=== PATIENT | male | born 1945 | race Caucasian/White ===

== ENCOUNTER 2017-07-12 15:14 | Emergency (ER) | payer MEDICARE, OTHER ==
[2017-07-12 15:14] VITALS: O2SAT 94
[2017-07-12 15:34] LABS: BASOPHILS % (AUTO) 1 % (0-3); EOSINOPHILS % (AUTO) 1 % (0-9); HEMATOCRIT 39 % (39-53); MEAN CORPUSCULAR HGB CONC 34.5 gm/dl (32.0-36.0); MEAN CORPUSCULAR VOLUME 85 fL (80-100); MONOCYTES % (AUTO) 12.7 % (0-12); NEUTROPHILS % (AUTO) 71.3 % (37-80)
[2017-07-12 15:47] LABS: CALCIUM 8.9 mg/dl (8.5-10.1); GLOM FILT RATE 60 mL/min (>60); POTASSIUM 4.5 mMol/L (3.5-5.1); SODIUM 138 mMol/L (136-145)
[2017-07-12 16:24] VITALS: BP 187/90; PULSE 65; RESP 18; TEMP 97.3
== END 2017-07-12 17:06 | DRG 605 ==
LOC: ED 15:14
DX: S50.11XA Contusion of right forearm, initial encounter (principal); R42 Dizziness and giddiness; S60.211A Contusion of right wrist, initial encounter; W19.XXXA Unspecified fall, initial encounter
CPT/HCPCS: 36415; 70450; 73090; 80048; 84484; 85025; 93005; 99282

== ENCOUNTER 2017-07-31 11:25 | Outpatient (CLI) | payer MEDICARE, OTHER | END 2017-07-31 11:26 | disposition home or self-care (01) | DRG 561 | LOC: CONVCARE 11:25 | PROVIDERS: ATTEND Orthopaedic Surgery | DX: S42.211D Unspecified displaced fracture of surgical neck of right humerus, subsequent encounter for fracture with routine healing (principal) | CPT/HCPCS: 73030 ==

== ENCOUNTER 2017-08-21 09:22 | Outpatient (CLI) | payer MEDICARE, OTHER | END 2017-08-21 09:23 | disposition home or self-care (01) | DRG 561 | LOC: CONVCARE 09:22 | PROVIDERS: ATTEND Orthopaedic Surgery | DX: S42.201D Unspecified fracture of upper end of right humerus, subsequent encounter for fracture with routine healing (principal); S42.131D Displaced fracture of coracoid process, right shoulder, subsequent encounter for fracture with routine healing | CPT/HCPCS: 73030 ==

== ENCOUNTER 2017-09-18 10:40 | Outpatient (CLI) | payer MEDICARE, OTHER | END 2017-09-18 10:41 | disposition home or self-care (01) | DRG 561 | LOC: RAD 10:40 | PROVIDERS: ATTEND Orthopaedic Surgery | DX: S42.201D Unspecified fracture of upper end of right humerus, subsequent encounter for fracture with routine healing (principal); M19.90 Unspecified osteoarthritis, unspecified site; M85.821 Other specified disorders of bone density and structure, right upper arm | CPT/HCPCS: 73030 ==

== ENCOUNTER 2017-10-23 13:36 | Outpatient (CLI) | payer MEDICARE, OTHER | END 2017-10-23 13:37 | disposition home or self-care (01) | DRG 561 | LOC: CONVCARE 13:36 | PROVIDERS: ATTEND Orthopaedic Surgery | DX: S42.221D 2-part displaced fracture of surgical neck of right humerus, subsequent encounter for fracture with routine healing (principal) | CPT/HCPCS: 73030 ==

== ENCOUNTER 2018-04-08 18:07 | Inpatient (IN) | payer MEDICARE, OTHER ==
[2018-04-08 18:24] LABS: BASOPHILS % (AUTO) 1 % (0-3); EOSINOPHILS % (AUTO) 1 % (0-9); HEMATOCRIT 41 % (39-53); HEMOGLOBIN 13.5 gm/dl (13.5-17.7); LYMPHOCYTES % (AUTO) 13.7 % (10-50); MEAN CORPUSCULAR HEMOGLOBIN 28.2 pg (27.0-32.0); MEAN CORPUSCULAR HGB CONC 32.5 gm/dl (32.0-36.0); MEAN CORPUSCULAR VOLUME 87 fL (80-100); MONOCYTES % (AUTO) 19.8 % (0-12); NEUTROPHILS % (AUTO) 64.7 % (37-80)
[2018-04-08 18:42] LABS: ABG PH 7.42 (7.35-7.45)
[2018-04-08 18:47] LABS: ALBUMIN 3.3 gm/dl (3.4-5.0); ALKALINE PHOSPHATASE 70 IU/L (46-116); ALT 17 IU/L (14-63); AST 16 IU/L (15-37); BILIRUBIN,TOTAL 0.6 mg/dl (0.2-1.0); BLOOD UREA NITROGEN 23 mg/dl (7-18); CALCIUM 8.4 mg/dl (8.5-10.1); CARBON DIOXIDE 31.9 mEq/L (21-32); CHLORIDE 101 mMol/L (98-107); CREATININE 1.28 mg/dl (0.80-1.30); CRP INFLAMMATORY 7.18 mg/dl (0.00-0.33); GLUCOSE 93 mg/dl (74-106); POTASSIUM 4.6 mMol/L (3.5-5.1); SODIUM 140 mMol/L (136-145); TOTAL PROTEIN 7.1 gm/dl (6.4-8.2); TROP I < 0.017 ng/ml (0.000-0.056)
[2018-04-08] MEDS ORDERED: CEFTRIAXONE 1 GM PDS 1 GM in SODIUM CHLORIDE 0.9% 50 ML 50 ML IV ONE (18:48)
[2018-04-08] MEDS ORDERED: AZITHROMYCIN 500 MG PDS 500 MG in SODIUM CHLORIDE 0.9% 250 ML 250 ML IV ONE (18:48)
[2018-04-08] MEDS ORDERED: SOLUMEDROL 125 MG/2 ML 125 MG/2 ML PDS IV ONE (18:49)
[2018-04-08] MEDS ORDERED: ALBUTEROL NEB SOL 2.5MG/3ML 1 VIAL SOL NEB ONE (18:49)
[2018-04-08] MEDS ORDERED: SOLUMEDROL 125 MG/2 ML 125 MG/2 ML PDS ONE (18:55)
[2018-04-08] MEDS ORDERED: CEFTRIAXONE 1 GM PDS ONE (18:55)
[2018-04-08] MEDS ORDERED: ALBUTEROL NEB SOL 2.5MG/3ML 1 VIAL SOL ONE (18:55)
[2018-04-08] MEDS: SODIUM CHLORIDE 0.9% FLUSH 10 ML SOL IV PRN ×2 (19:06→19:55)
[2018-04-08 19:20] LABS: INR 1.07 (0.86-1.12)
[2018-04-08] MEDS ORDERED: FUROSEMIDE 40 MG SOL IV ONE (19:29)
[2018-04-08] MEDS ORDERED: FUROSEMIDE 40 MG SOL ONE (19:30)
[2018-04-08 20:09] LABS: APPEARANCE,URINE Cloudy; BILIRUBIN,URINE NEGATIVE (NEGATIVE); COLOR,URINE Yellow; GLUCOSE, URINE (UA) NEGATIVE (NEGATIVE); KETONES,URINE TRACE (NEGATIVE); LEUKOCYTE ESTERASE ,URINE 3+ (NEGATIVE); NITRATE,URINE POSITIVE (NEGATIVE); OCCULT BLOOD,URINE 1+ (NEG-TRACE); PH,URINE 8.5
[2018-04-08] MEDS ORDERED: AZITHROMYCIN 500 MG PDS IV ONE (20:09)
[2018-04-08 20:23] LABS: CRYSTALS UNABLE (0-3 AVE/HPF); EPITHELIAL CELLS UNABLE TO ENUMERATE (SQUAMOUS); RBC,URINE UNABLE TO ENUMERATE (0-3AV/HPF); WBC,URINE PACKED (0-5AV/HPF)
[2018-04-08] MEDS ORDERED: AMLODIPINE 5 MG TAB ONE (20:23)
[2018-04-08 20:24] LABS: BACTERIA PACKED (< 1+)
[2018-04-08] MEDS: AMLODIPINE 5 MG TAB PO SCH (20:29)
[2018-04-08] MEDS ORDERED: ALBUTEROL/IPRATROPIUM 1 VIAL SOL INH ONE (20:45)
[2018-04-08] MEDS ORDERED: ALBUTEROL/IPRATROPIUM 1 VIAL SOL ONE (20:47)
[2018-04-08] MEDS ORDERED: BUDESONIDE 0.25 MG/2 ML SUS INH ONE (20:48)
[2018-04-08] MEDS ORDERED: BUDESONIDE 0.5 MG/2 ML AMPUL.NEB ONE (21:05)
[2018-04-08] MEDS ORDERED: HYDRALAZINE HYDROCHLORIDE 10 MG TAB PO ONE (21:58)
[2018-04-08] MEDS ORDERED: HYDRALAZINE HYDROCHLORIDE 10 MG TAB ONE (22:00)
[2018-04-08] MEDS: AMLODIPINE 5 MG TAB PO ONE ×2 (23:23)
[2018-04-09] MEDS: AMLODIPINE 5 MG TAB PO SCH ×2 (00:07→21:25)
[2018-04-09] MEDS ORDERED: DM/GUAIFENESIN SYRUP 10 ML SYRP PO PRN (00:44)
[2018-04-09] MEDS: ALBUTEROL NEB SOL 2.5MG/3ML 1 VIAL SOL NEB PRN ×2 (05:20→16:21)
[2018-04-09] MEDS ORDERED: OMEPRAZOLE 20 MG CAPSULE PO SCH (07:00)
[2018-04-09] MEDS ORDERED: MAGNESIUM HYDROXIDE 30 ML SUS PO PRN (08:40)
[2018-04-09] MEDS ORDERED: DULOXETINE HYDROCHLORIDE 60 MG ECC PO SCH (09:00)
[2018-04-09] MEDS ORDERED: CEFTRIAXONE 1 GM PDS 1 GM in SODIUM CHLORIDE 0.9% 50 ML 50 ML IV SCH ×2 (09:00→19:00)
[2018-04-09] MEDS: POLYETHYLENE GLYCOL 17 GM/1 TBS PDS PO SCH (09:48)
[2018-04-09] MEDS: ALBUTEROL/IPRATROPIUM 1 VIAL SOL INH SCH ×3 (09:48→20:49)
[2018-04-09] MEDS: SODIUM CHLORIDE 0.9% FLUSH 10 ML SOL IV PRN (09:48)
[2018-04-09] MEDS: DOCUSATE SODIUM 100 MG SGL PO SCH (09:49)
[2018-04-09] MEDS: DULOXETINE HCL 30 MG CAPSULE.DR PO SCH (09:49)
[2018-04-09] MEDS: GABAPENTIN 300 MG CAP PO SCH ×3 (09:50→21:24)
[2018-04-09] MEDS: PREDNISONE 20 MG TAB PO SCH (09:50)
[2018-04-09] MEDS: FERROUS GLUCONATE 324 MG TABLET PO SCH (09:50)
[2018-04-09] MEDS: APAP/HYDROCODONE 325/5 TAB PO SCH ×3 (09:50→21:24)
[2018-04-09] MEDS: LABETALOL HYDROCHLORIDE 100 MG TAB PO SCH ×2 (09:51→21:26)
[2018-04-09] MEDS: HYDRALAZINE HYDROCHLORIDE 10 MG TAB PO SCH ×3 (09:51→21:15)
[2018-04-09] MEDS: PANTOPRAZOLE SODIUM 40 MG ECT PO SCH (09:51)
[2018-04-09] MEDS: DIVALPROEX ECC 125 MG ECC PO SCH ×3 (09:54→16:57)
[2018-04-09] MEDS: BUDESONIDE 3 MG ECC PO SCH (14:10)
[2018-04-09] MEDS ORDERED: SODIUM CHLORIDE 0.9% 50 ML 50 ML IV ONE (18:37)
[2018-04-09] MEDS ORDERED: CEFTRIAXONE 1 GM PDS ONE (18:37)
[2018-04-09] MEDS: CEFTRIAXONE 1 GM PDS 1 GM in SODIUM CHLORIDE 0.9% 50 ML 50 ML IV SCH (18:49)
[2018-04-09] MEDS ORDERED: DOXAZOSIN 2 MG TAB PO SCH (21:00)
[2018-04-09] MEDS ORDERED: AZITHROMYCIN 250 MG TAB PO SCH (21:00)
[2018-04-09] MEDS ORDERED: AMLODIPINE 5 MG TAB PO SCH (21:00)
[2018-04-09] MEDS: ASPIRIN 325 MG TAB PO SCH (21:17)
[2018-04-09] MEDS: BACLOFEN 10 MG TAB PO SCH (21:17)
[2018-04-09] MEDS: DOXAZOSIN 2 MG TAB PO SCH (21:19)
[2018-04-09] MEDS: ATORVASTATIN 10 MG TAB PO SCH (21:22)
[2018-04-09] MEDS: DIVALPROEX 250 MG TAB.ER.24H PO SCH (21:33)
[2018-04-10] MEDS: ALBUTEROL/IPRATROPIUM 1 VIAL SOL INH SCH ×4 (02:11→19:59)
[2018-04-10] MEDS: DIVALPROEX ECC 125 MG ECC PO SCH ×3 (07:06→16:02)
[2018-04-10 07:29] LABS: CALCIUM 8.2 mg/dl (8.5-10.1); CARBON DIOXIDE 33.8 mEq/L (21-32); CREATININE 1.16 mg/dl (0.80-1.30); POTASSIUM 3.8 mMol/L (3.5-5.1)
[2018-04-10 07:30] LABS: BASOPHILS % (AUTO) 1 % (0-3); EOSINOPHILS % (AUTO) 0 % (0-9); HEMATOCRIT 38 % (39-53); HEMOGLOBIN 12.2 gm/dl (13.5-17.7); MEAN CORPUSCULAR HEMOGLOBIN 28.1 pg (27.0-32.0); MEAN CORPUSCULAR HGB CONC 32.1 gm/dl (32.0-36.0); MEAN CORPUSCULAR VOLUME 88 fL (80-100); MONOCYTES % (AUTO) 13.1 % (0-12); NEUTROPHILS % (AUTO) 75.3 % (37-80)
[2018-04-10] MEDS: POLYETHYLENE GLYCOL 17 GM/1 TBS PDS PO SCH (09:37)
[2018-04-10] MEDS: DULOXETINE HCL 30 MG CAPSULE.DR PO SCH (09:37)
[2018-04-10] MEDS: BUDESONIDE 3 MG ECC PO SCH (09:38)
[2018-04-10] MEDS: PANTOPRAZOLE SODIUM 40 MG ECT PO SCH (09:38)
[2018-04-10] MEDS: PREDNISONE 20 MG TAB PO SCH (09:38)
[2018-04-10] MEDS: DOCUSATE SODIUM 100 MG SGL PO SCH (09:38)
[2018-04-10] MEDS: LABETALOL HYDROCHLORIDE 100 MG TAB PO SCH ×2 (09:38→20:11)
[2018-04-10] MEDS: GABAPENTIN 300 MG CAP PO SCH ×3 (09:38→20:10)
[2018-04-10] MEDS: APAP/HYDROCODONE 325/5 TAB PO SCH ×3 (09:38→20:04)
[2018-04-10] MEDS: HYDRALAZINE HYDROCHLORIDE 10 MG TAB PO SCH ×3 (09:39→20:05)
[2018-04-10] MEDS: SODIUM CHLORIDE 0.9% FLUSH 10 ML SOL IV SCH ×2 (09:44→19:35)
[2018-04-10] MEDS: FERROUS GLUCONATE 324 MG TABLET PO SCH (11:12)
[2018-04-10] MEDS ORDERED: SODIUM CHLORIDE 0.9% 50 ML 50 ML IV ONE (16:11)
[2018-04-10] MEDS ORDERED: CEFTRIAXONE 1 GM PDS ONE (16:11)
[2018-04-10] MEDS: CEFTRIAXONE 1 GM PDS 1 GM in SODIUM CHLORIDE 0.9% 50 ML 50 ML IV SCH (19:29)
[2018-04-10] MEDS: ASPIRIN 325 MG TAB PO SCH (20:06)
[2018-04-10] MEDS: BACLOFEN 10 MG TAB PO SCH (20:07)
[2018-04-10] MEDS: DOXAZOSIN 2 MG TAB PO SCH (20:08)
[2018-04-10] MEDS: ATORVASTATIN 10 MG TAB PO SCH (20:09)
[2018-04-10] MEDS: DIVALPROEX 250 MG TAB.ER.24H PO SCH (20:09)
[2018-04-10] MEDS: AMLODIPINE 5 MG TAB PO SCH (20:11)
[2018-04-10] MEDS ORDERED: AZITHROMYCIN 250 MG TAB PO SCH (21:00)
[2018-04-11] MEDS: ALBUTEROL/IPRATROPIUM 1 VIAL SOL INH SCH ×2 (02:10→09:08)
[2018-04-11] MEDS: SODIUM CHLORIDE 0.9% FLUSH 10 ML SOL IV SCH ×2 (02:14→08:58)
[2018-04-11] MEDS: DIVALPROEX ECC 125 MG ECC PO SCH (07:00)
[2018-04-11 07:22] LABS: BASOPHILS % (AUTO) 0 % (0-3); EOSINOPHILS % (AUTO) 0 % (0-9); HEMATOCRIT 40 % (39-53); HEMOGLOBIN 12.7 gm/dl (13.5-17.7); LYMPHOCYTES % (AUTO) 12.7 % (10-50); MEAN CORPUSCULAR HEMOGLOBIN 28.1 pg (27.0-32.0); MEAN CORPUSCULAR HGB CONC 31.9 gm/dl (32.0-36.0); MEAN CORPUSCULAR VOLUME 88 fL (80-100); MONOCYTES % (AUTO) 10.9 % (0-12); NEUTROPHILS % (AUTO) 76.2 % (37-80)
[2018-04-11 07:28] LABS: CALCIUM 7.9 mg/dl (8.5-10.1); CREATININE 1.09 mg/dl (0.80-1.30); POTASSIUM 4.1 mMol/L (3.5-5.1)
[2018-04-11 07:32] LABS: CARBON DIOXIDE 34.1 mEq/L (21-32)
[2018-04-11] MEDS: POLYETHYLENE GLYCOL 17 GM/1 TBS PDS PO SCH (08:57)
[2018-04-11] MEDS: PREDNISONE 20 MG TAB PO SCH (08:59)
[2018-04-11] MEDS: HYDRALAZINE HYDROCHLORIDE 10 MG TAB PO SCH (09:00)
[2018-04-11] MEDS: GABAPENTIN 300 MG CAP PO SCH (09:00)
[2018-04-11] MEDS: DOCUSATE SODIUM 100 MG SGL PO SCH (09:01)
[2018-04-11] MEDS: FERROUS GLUCONATE 324 MG TABLET PO SCH (09:02)
[2018-04-11] MEDS: PANTOPRAZOLE SODIUM 40 MG ECT PO SCH (09:03)
[2018-04-11] MEDS: LABETALOL HYDROCHLORIDE 100 MG TAB PO SCH (09:04)
[2018-04-11] MEDS: BUDESONIDE 3 MG ECC PO SCH (09:04)
[2018-04-11] MEDS: APAP/HYDROCODONE 325/5 TAB PO SCH (09:15)
[2018-04-11] MEDS: DULOXETINE HCL 30 MG CAPSULE.DR PO SCH (09:15)
[2018-04-11 09:38] VITALS: PULSE 81; O2SAT 99
[2018-04-11 09:40] VITALS: RESP 22
[2018-04-11 11:09] VITALS: BP 160/88; TEMP 98.2
== END 2018-04-11 09:55 | DRG 193 ==
LOC: ED 18:07 → ACUTE CARE 23:00
PROVIDERS: ADMIT Family Medicine; ATTEND Family Medicine
PROC: F01ZBFZ Bed Mobility Assessment using Assistive, Adaptive, Supportive or Protective Equipment (ICD-10-PCS; principal; 2018-04-09)
DX: R05 Cough (principal); J18.9 Pneumonia, unspecified organism; J18.1 Lobar pneumonia, unspecified organism; R06.02 Shortness of breath; I63.8 Other cerebral infarction; N30.01 Acute cystitis with hematuria; R09.02 Hypoxemia; I10 Essential (primary) hypertension
CPT/HCPCS: 36415; 36600; 71045; 71275; 80048; 80053; 81001; 82803; 83880; 84484; 85025; 85610; 87040; 87077; 87088; 87186; 93005; 93012; 94150; 94640; 96365; 96374; 96375; 99222; 99285; J0456; J0696; J1940; J2930; J7613; Q9967; A6232; A9270-GY

== ENCOUNTER 2018-12-18 09:32 | Day surgery (SDC) | payer MEDICARE, OTHER ==
[2018-12-18 09:52] VITALS: RESP 16; TEMP 98.1
[2018-12-18] MEDS ORDERED: ACETAZOLAMIDE 250 MG PO ONE (09:55)
[2018-12-18] MEDS: TETRACAINE HCL 0.5 % 1 DROP SOL ONE ×3 (10:00→10:49)
[2018-12-18] MEDS: PHENYLEPHRINE HCL 10% OPHTHAL SOL ONE ×2 (10:01→10:19)
[2018-12-18] MEDS: CYCLOPENTOLATE 1% SOL ONE ×2 (10:02→10:20)
[2018-12-18] MEDS: KETOROLAC 0.5% OPTH 60 DROP SOL ONE ×2 (10:02→10:20)
[2018-12-18] MEDS ORDERED: MIDAZOLAM 2 MG/2 ML SOL ONE (10:15)
[2018-12-18] MEDS ORDERED: IMPRIMIS ONE (10:43)
[2018-12-18] MEDS ORDERED: BSS 500 ML 500 ML IR ONE (10:44)
[2018-12-18] MEDS ORDERED: POVIDONE IODINE 5% SOL ONE (10:44)
[2018-12-18] MEDS ORDERED: LIDOCAINE HCL 1% MPF 30 SOL ONE (10:44)
[2018-12-18] MEDS ORDERED: FENTANYL 100MCG/2ML SOL ONE (10:49)
[2018-12-18 11:22] VITALS: BP 151/86; PULSE 60; O2SAT 91
== END 2018-12-18 12:00 | DRG 125 ==
LOC: SURG 09:32
PROVIDERS: ATTEND Ophthalmology
DX: H25.89 Other age-related cataract (principal)
CPT/HCPCS: J2250; J3010; A9270-GY; J2001

== ENCOUNTER 2019-01-15 07:00 | Day surgery (SDC) | payer MEDICARE, OTHER ==
[2019-01-15] MEDS ORDERED: ACETAZOLAMIDE 250 MG PO ONE (07:20)
[2019-01-15] MEDS: PHENYLEPHRINE HCL 10% OPHTHAL SOL ONE ×2 (07:26→07:42)
[2019-01-15] MEDS: TETRACAINE HCL 0.5 % 1 DROP SOL ONE ×3 (07:26→08:24)
[2019-01-15] MEDS: CYCLOPENTOLATE 1% SOL ONE ×2 (07:28→07:43)
[2019-01-15] MEDS: KETOROLAC 0.5% OPTH 60 DROP SOL ONE ×2 (07:28→07:43)
[2019-01-15] MEDS ORDERED: MIDAZOLAM 2 MG/2 ML SOL ONE (07:30)
[2019-01-15 07:35] VITALS: PULSE 57
[2019-01-15] MEDS ORDERED: IMPRIMIS ONE (08:19)
[2019-01-15] MEDS ORDERED: POVIDONE IODINE 5% SOL ONE (08:19)
[2019-01-15] MEDS ORDERED: BSS 500 ML 500 ML IR ONE (08:20)
[2019-01-15] MEDS ORDERED: LIDOCAINE HCL 1% MPF 30 SOL ONE (08:20)
[2019-01-15 08:59] VITALS: BP 171/86; RESP 18; TEMP 97.4; O2SAT 92
== END 2019-01-15 09:30 | disposition home or self-care (01) | DRG 125 ==
LOC: SURG 07:00
PROVIDERS: ATTEND Ophthalmology
DX: H25.89 Other age-related cataract (principal)
CPT/HCPCS: J2250; A9270-GY; J2001